=== PATIENT | female | born 1955 | race Two or more races ===

== ENCOUNTER 2016-10-06 23:36 | Emergency (ER) | payer OTHER ==
[~2016-10-06] VITALS: Ht 170.2 cm; Wt 65.8 kg
[~2016-10-06 23:36] MED LIST: AMLO5TAB2 PO; ANAS1TAB8 PO; ASPI81TA31 PO; ENAL20TA70 PO; METF-495 PO; SITA100T PO
[2016-10-07] MEDS ORDERED: LORAZEPAM 2 MG/1 ML VIAL IM ONE
[2016-10-07] MEDS ORDERED: LORAZEPAM 2 MG/1 ML VIAL ONE (00:02)
[2016-10-07 00:22] LABS: BASOPHILS # (AUTO) 0.1 K/uL (0.0-8.0); BASOPHILS % (AUTO) 0.8 % (0.0-2.0); EOSINOPHILS # (AUTO) 0.2 K/uL (0.0-0.7); HEMATOCRIT 39.2 % (37-47); LYMPHOCYTES # (AUTO) 2.7 K/UL (0.8-4.8); LYMPHOCYTES % (AUTO) 35.3 % (20.5-51.5); MEAN CORPUSCULAR HEMOGLOBIN 28.7 UUG (27.0-31.0); MEAN CORPUSCULAR HGB CONC 33 g/dL (32.0-37.0); MEAN CORPUSCULAR VOLUME 86.6 FL (81.0-99.0); MONOCYTES # (AUTO) 0.5 K/UL (0.1-1.30); MONOCYTES % (AUTO) 6.8 % (0.0-11.0); NEUTROPHILS # (AUTO) 4.2 K/UL (1.8-8.9); NEUTROPHILS % (AUTO) 55.1 % (38.5-71.5); PLATELET COUNT (AUTO) 316 K/UL (150-450); RED BLOOD CELL COUNT(AUTO) 4.52 MIL/UL (4.2-5.4); WHITE BLOOD COUNT (AUTO) 7.8 K/UL (4.0-11.2)
[2016-10-07 00:27] LABS: CREATININE 0.8 mg/dL (0.6-1.3); POTASSIUM 3.7 mmol/L (3.5-5.1)
[2016-10-07 00:33] LABS: BILIRUBIN,DIRECT 0.1 mg/dL (0.0-0.2); BILIRUBIN,TOTAL 0.3 mg/dL (0.2-1.0); TOTAL PROTEIN, SERUM 8.1 g/dL (6.4-8.2)
--- NOTE | 2016-10-07 01:43 | NUR ---
Patient discharged to home in stable conditon. Written and verbal after care instructions given. Patient verbalizes understanding of instructions.
--- NOTE | 2016-10-07 04:53 | NUR ---
The patient left prior to the chest x-ray results, I had discussed with them and if there were any acute findings I would let them know. Chest x-ray revealed that there was a possible nodule, CT was recommended. I left a message on an answering machine for them to call back
== END 2016-10-07 01:44 | disposition home or self-care (01) ==
LOC: ER 23:44
DX: F41.9 Anxiety disorder, unspecified (principal); F41.0 Panic disorder [episodic paroxysmal anxiety]; I10 Essential (primary) hypertension; Z85.3 Personal history of malignant neoplasm of breast; Z88.6 Allergy status to analgesic agent; Z79.82 Long term (current) use of aspirin
CPT/HCPCS: 36415; 70030-TC; 71010; 84443; 85025; 85730; 93005; A4663; J2060

== ENCOUNTER 2017-02-11 12:25 | Inpatient (IN) | payer OTHER ==
[~2017-02-11] VITALS: Ht 167.6 cm; Wt 64.0 kg
[2017-02-11] MEDS ORDERED: OYSCO-500 TABLET (12:43)
--- NOTE | 2017-02-11 12:54 | NUR ---
PT IS IN ROOM #1B. DR PRAJAPATI EVALUATED THE PT.
[2017-02-11] MEDS ORDERED: MORPHINE SULFATE 2 MG/1 ML DISP.SYRIN IV ONE (13:30)
[2017-02-11] MEDS ORDERED: ONDANSETRON 4 MG/2 ML VIAL IV ONE (13:30)
[2017-02-11] MEDS ORDERED: IV NORMAL SALINE 1000 ML BAG IV ONE (13:30)
[2017-02-11 13:55] LABS: BASOPHILS # (AUTO) 0.1 K/uL (0.0-8.0); BASOPHILS % (AUTO) 0.9 % (0.0-2.0); EOSINOPHILS # (AUTO) 0.1 K/uL (0.0-0.7); EOSINOPHILS % (AUTO) 1.7 % (0.0-7.0); HEMATOCRIT 35.9 % (31.2-41.9); HEMOGLOBIN 12.1 g/dL (10.9-14.3); LYMPHOCYTES # (AUTO) 1.8 K/uL (20.0-40.0); LYMPHOCYTES % (AUTO) 21.3 % (20.5-51.5); MEAN CORPUSCULAR HEMOGLOBIN 29.1 uug (24.7-32.8); MEAN CORPUSCULAR HGB CONC 34 g/dL (32.3-35.6); MEAN CORPUSCULAR VOLUME 86.3 fL (75.5-95.3); MONOCYTES # (AUTO) 0.5 K/uL (2.0-10.0); MONOCYTES % (AUTO) 6.1 % (0.0-11.0); PLATELET COUNT (AUTO) 305 K/uL (179-408); RED BLOOD CELL COUNT(AUTO) 4.16 MIL/uL (3.63-4.92); WHITE BLOOD COUNT (AUTO) 8.6 K/uL (3.8-11.8)
[2017-02-11 13:59] LABS: CREATININE 0.6 mg/dL (0.6-1.3); POTASSIUM 3.7 mmol/L (3.5-5.1)
[2017-02-11 14:05] LABS: BILIRUBIN,DIRECT 0.1 mg/dL (0.0-0.2); BILIRUBIN,TOTAL 0.2 mg/dL (0.2-1.0); TOTAL PROTEIN, SERUM 7.1 g/dL (6.4-8.2)
[2017-02-11] MEDS ORDERED: LORAZEPAM 2 MG/1 ML VIAL IV ONE ×2 (14:15→14:30)
[2017-02-11] MEDS ORDERED: LORAZEPAM 2 MG/1 ML VIAL ONE ×2 (14:22→14:40)
[2017-02-11 14:59] LABS: *BILIRUBIN,URIN NEGATIVE (NEGATIVE); *BLOOD, URINE Trace-lysed (NEGATIVE); *CLARITY,URINE CLEAR (CLEAR); *COLOR,URINE LIGHT YELLOW (YELLOW); *KETONES,URINE NEGATIVE (NEGATIVE); *PROTEIN,URINE NEGATIVE (NEGATIVE); *UROBILINOGEN,URINE 0.2 E.U./dl (NORMAL); LEUKOCYTE ESTERASE ,URINE NEGATIVE (NEGATIVE); NITRITE, URINE NEGATIVE (NEGATIVE); UGLUCOSE NEGATIVE (NEGATIVE)
[2017-02-11 15:18] LABS: RBC,URINE 0-3 /HPF (0-3)
[2017-02-11 15:19] LABS: BACTERIA,URINE NONE SEEN /HPF (NONE SEEN); SQUAMOUS EPITHELIAL CELL,UR FEW /HPF (NONE SEEN)
[2017-02-11 18:35] VITALS: BP 139/72
--- NOTE | 2017-02-11 18:45 | NUR ---
RECEIVED PATIENT FROM ED BY JACOBY 61 YEARS OLD FEMALE WITH DX OF LT RIB FRACTURE TO ROOM 218.PLACED INTO BED FIXED AND MADE COMFORTABLE.PATIENT IS ALERT AND ORIENTED X4 DENIES PAIN OR DISCOMFORTS AT THIS TIME.PATIENT ORIENTED TO ROOM BATHROOM AND THIS HOSPITAL PROTOCOL.MADE COMFORTABLE ADMISSION ENDORSED.
--- NOTE | 2017-02-11 18:45 | NUR ---
PT WAS TRANSFERED TO ROOM #218. REPORT WAS GIVEN TO M/S RN.
--- NOTE | 2017-02-11 19:30 | NUR ---
Pt in room alert awake and oriented x 4. No acute distress but states discomfort to right side left rib area. Refuses pain medication at this time. Awaiting admitting orders from Dr. Ursula Dominguez. Bed alarm on, side rails up, and call light placed within reach. Continue to monitor.
[2017-02-11 20:00] VITALS: BP 123/60
[2017-02-11] MEDS ORDERED: ONDANSETRON 4 MG/2 ML VIAL IV PRN (20:15)
[2017-02-11] MEDS ORDERED: Z GUARD REMEDY PASTE 57 GM TUBE TOP PRN (20:15)
[2017-02-11] MEDS ORDERED: ZOLPIDEM 5 MG TABLET PO PRN (20:15)
[2017-02-11] MEDS ORDERED: HYDROCODONE/APAP 10-325 MG TABLET PO PRN (20:15)
[2017-02-11] MEDS ORDERED: MAGNESIUM HYDROXIDE 30 ML LIQUID UDC PO PRN (20:15)
[2017-02-11] MEDS ORDERED: MORPHINE SULFATE 2 MG/1 ML DISP.SYRIN IV PRN (20:15)
[2017-02-11] MEDS ORDERED: ACETAMINOPHEN 325 MG TABLET PO PRN (20:15)
[2017-02-11] MEDS ORDERED: ANASTROZOLE 1 MG TABLET PO SCH (21:00)
--- NOTE | 2017-02-11 21:00 | NUR ---
Pt requested ambien and states she takes Januvia 100mg po 1 hr before breakfast daily. MD made aware. Continue to monitor.
[2017-02-11] MEDS ORDERED: ZOLPIDEM 5 MG TABLET ONE (22:08)
[2017-02-12] MEDS ORDERED: SITAGLIPTIN PHOSPHATE 50 MG TABLET PO SCH ×2 (07:00→09:00)
[2017-02-12] MEDS ORDERED: AMLODIPINE 5 MG TABLET PO SCH (09:00)
[2017-02-12] MEDS ORDERED: ENALAPRIL 10 MG TABLET PO SCH (09:00)
[2017-02-12] MEDS ORDERED: LINAGLIPTIN 5 MG TABLET PO SCH (09:00)
[2017-02-12] MEDS ORDERED: ASPIRIN 81 MG TAB.CHEW PO SCH (09:00)
[2017-02-12 09:43] LABS: BILIRUBIN,TOTAL 0.2 mg/dL (0.2-1.0); CREATININE 0.7 mg/dL (0.6-1.3); PHOSPHOROUS 4.9 mg/dL (2.5-4.9); POTASSIUM 4.1 mmol/L (3.5-5.1)
[2017-02-12 09:44] LABS: THYROID STIMULATING HORMONE 0.532 mIU/mL (0.358-3.740)
--- NOTE | 2017-02-12 11:16 | NUR ---
Pt SBAR report received at bedside, earlier this morning when system was down. Pt awake, alert, and oriented x4. Board updated. Pt assessed and requesting diabetic medication Januvia regularly taken at home. Hospital protocol discussed that Tradjenta is the automatic substitute. Pt compliant with all other routine morning medications administered. Enalapril held r/t BP of 106/66, pulse 83. Tylenol administered as ordered for mild pain 4-5/10 located to left ribs. Extra pillow supplied and Pt teaching to use for splinting done. All safety and comfort measures met at this time. Personal items and call light within reach. Will continue to monitor.
[2017-02-12 11:20] VITALS: BP 121/67
[2017-02-12 11:44] LABS: BASOPHILS # (AUTO) 0.1 K/uL (0.0-8.0); BASOPHILS % (AUTO) 0.8 % (0.0-2.0); EOSINOPHILS # (AUTO) 0.2 K/uL (0.0-0.7); EOSINOPHILS % (AUTO) 2.6 % (0.0-7.0); HEMATOCRIT 35.7 % (37-47); LYMPHOCYTES # (AUTO) 1.7 K/UL (0.8-4.8); LYMPHOCYTES % (AUTO) 24.4 % (20.5-51.5); MEAN CORPUSCULAR HEMOGLOBIN 29.3 UUG (27.0-31.0); MEAN CORPUSCULAR HGB CONC 34 g/dL (32.0-37.0); MEAN CORPUSCULAR VOLUME 87.2 FL (81.0-99.0); MONOCYTES # (AUTO) 0.5 K/UL (0.1-1.30); MONOCYTES % (AUTO) 7.7 % (0.0-11.0); NEUTROPHILS # (AUTO) 4.5 K/UL (1.8-8.9); NEUTROPHILS % (AUTO) 64.5 % (38.5-71.5); PLATELET COUNT (AUTO) 305 K/UL (150-450)
[2017-02-12] MEDS ORDERED: LIDOCAINE 5% PATCH TD SCH (13:15)
--- NOTE | 2017-02-12 13:59 | NUR ---
Pt seen by Dr. Yudith BUTT. Plan of care discussed, including D/C plans for today. Incentive spirometer placed at bedside and Pt teaching regarding use provided. Will continue to monitor and follow up.
[2017-02-12] MEDS ORDERED: HYDR-548 PO (14:31)
[2017-02-12 15:35] VITALS: BP 118/67
[2017-02-12] MEDS ORDERED: METFORMIN XR 500 MG TAB.SR.24H PO SCH (18:00)
--- NOTE | 2017-02-12 18:23 | NUR ---
Pt discharge orders, plans, and instructions received and discussed with Pt. Pt verbalizes understanding of d/c instructions and to f/u with PCP. V/S stable at 116/60, 80, 96%, and a 98.7 temp. Documents signed and witnessed. Pt IV removed and intact. Pt belongings accounted for including home medications and ID band removed. Pt escorted off the unit via wheelchair to private care with son waiting to transfer home.
[2017-02-12] MEDS ORDERED: ENOXAPARIN SODIUM 40 MG/0.4 ML DISP.SYRIN SQ SCH (21:00)
--- NOTE | 2017-02-15 09:21 | NUR ---
Spoke to [facility] Anastasia MAYA [ ; ], and informed her that the patient was discharged on 02/12/17. Faxed the clinical reviews and discharge summary.
== END 2017-02-12 18:20 | disposition home or self-care (01) | DRG 135 ==
LOC: ER 12:32 → MED 18:06
PROVIDERS: ADMIT Nurse Practitioner Acute Care; ATTEND Nurse Practitioner Acute Care
DX: S22.42XA Multiple fractures of ribs, left side, initial encounter for closed fracture (principal); I10 Essential (primary) hypertension; E11.9 Type 2 diabetes mellitus without complications; F41.9 Anxiety disorder, unspecified; W17.89XA Other fall from one level to another, initial encounter; Y92.89 Other specified places as the place of occurrence of the external cause; I97.2 Postmastectomy lymphedema syndrome; Z85.3 Personal history of malignant neoplasm of breast; Z79.84 Long term (current) use of oral hypoglycemic drugs; M25.552 Pain in left hip; M51.36 Other intervertebral disc degeneration, lumbar region
CPT/HCPCS: 36415; 70030-TC; 70450; 71010; 71101; 72072; 72100; 72125; 73502; 83735; 84100; 84443; 85025; 87086; A4663; J2060; J7030

== ENCOUNTER 2019-06-07 11:47 | Emergency (ER) | payer MEDICAID, OTHER ==
[~2019-06-07 11:47] MED LIST changes: -AMLO5TAB2 PO; +AMLO5TAB9 PO; +EZET10TA15 PO; +HYDR-4354 PO; +OYSCO-500 TABLET
--- NOTE | 2019-06-07 11:53 | NUR ---
PT DECIDED TO LEAVE AND COME BACK IN THE AFTERNOON. PT HAS APPT FOR CT TODAY AND DOES NOT WANT TO MISS IT. Addendum: 06/07/19 at 1154 by ELSI LEFT WITHOUT BEING TRIAGED
== END 2019-06-07 11:53 | disposition left against medical advice (07) ==
LOC: ER 11:47
DX: Z53.21 Procedure and treatment not carried out due to patient leaving prior to being seen by health care provider (principal)

== ENCOUNTER 2019-07-04 16:05 | Emergency (ER) | payer MEDICAID ==
[~2019-07-04] VITALS: Ht 165.1 cm; Wt 67.1 kg
--- NOTE | 2019-07-04 16:20 | NUR ---
PT IS IN ROOM #1A. DR JENKINS EVALUATED THE PT.
[2019-07-04] MEDS ORDERED: MORPHINE SULFATE 4 MG/1 ML DISP.SYRIN ONE (16:26)
[2019-07-04] MEDS ORDERED: TDAP DIPH,PERTUSS,TET VAC/PF 0.5 ML DISP.SYRIN IM ONE ×2 (16:26→16:30)
[2019-07-04] MEDS ORDERED: ONDANSETRON ODT 4 MG TAB.RAPDIS ONE (16:26)
[2019-07-04] MEDS ORDERED: ONDANSETRON ODT 4 MG TAB.RAPDIS SL ONE (16:30)
[2019-07-04] MEDS ORDERED: MORPHINE SULFATE 4 MG/1 ML DISP.SYRIN IM ONE (16:30)
--- NOTE | 2019-07-04 17:54 | NUR ---
PT WAS D/C'd TO HOME. D/C INSTRUCTIONS GIVEN TO THE PT BY DR JENKINS.
[2019-07-04 17:55] VITALS: BP 141/79
== END 2019-07-04 17:58 | disposition home or self-care (01) ==
LOC: ER 16:11
DX: S82.832A Other fracture of upper and lower end of left fibula, initial encounter for closed fracture (principal); S00.83XA Contusion of other part of head, initial encounter; S80.02XA Contusion of left knee, initial encounter; S70.02XA Contusion of left hip, initial encounter; I10 Essential (primary) hypertension; E11.9 Type 2 diabetes mellitus without complications; Z88.5 Allergy status to narcotic agent; Z79.82 Long term (current) use of aspirin; Z79.899 Other long term (current) drug therapy; W01.198A Fall on same level from slipping, tripping and stumbling with subsequent striking against other object, initial encounter; Y93.89 Activity, other specified; Y92.89 Other specified places as the place of occurrence of the external cause; Y99.8 Other external cause status
CPT/HCPCS: 70450; 70486; 73502; 73610; 90715; A4663; J2270; Q0162

== ENCOUNTER 2021-04-10 09:23 | Inpatient (IN) | payer MEDICARE, OTHER ==
[~2021-04-10] VITALS: Ht 160 cm; Wt 59.2 kg
[~2021-04-10 09:23] MED LIST changes: +AMLO-212 PO; -AMLO5TAB9 PO
[2021-04-10] MEDS ORDERED: LORAZEPAM 2 MG/1 ML VIAL IV ONE ×3 (09:45→17:45)
[2021-04-10 09:58] LABS: HEMATOCRIT 30.2 % (31.2-41.9); MEAN CORPUSCULAR HEMOGLOBIN 35.5 uug (24.7-32.8); MEAN CORPUSCULAR VOLUME 103.1 fL (75.5-95.3); PLATELET COUNT (AUTO) 403 K/uL (179-408)
[2021-04-10] MEDS ORDERED: LORAZEPAM 2 MG/1 ML VIAL ONE ×3 (10:05→17:45)
[2021-04-10 10:07] LABS: CREATININE 0.9 mg/dL (0.6-1.3)
--- NOTE | 2021-04-10 10:19 | NUR ---
Pt laying comfortably, fowlers in gurney with spouse at bedside. States feeling improvement in S/S post medication admistration. No adverse event reported.
[2021-04-10 10:20] LABS: BILIRUBIN,DIRECT 0.1 mg/dL (0.0-0.2); BILIRUBIN,TOTAL 0.4 mg/dL (0.2-1.0); TOTAL PROTEIN, SERUM 7.8 g/dL (6.4-8.2)
[2021-04-10] MEDS ORDERED: FULV250D2 IM (10:30)
[2021-04-10] MEDS ORDERED: ABEM150T PO (10:30)
[2021-04-10] MEDS ORDERED: IV NORMAL SALINE 250 ML IV ONE (11:55)
[2021-04-10] MEDS ORDERED: SWABABLE VALVE TRANSFER SET EA MC ONE (11:55)
[2021-04-10] MEDS ORDERED: IOHEXOL 350 100 ML INFUS..BTL ONE (11:55)
--- NOTE | 2021-04-10 12:01 | NUR ---
Pt taken for CT scan via gurney, in stable condition, by audiovisual lead technician. SpO2 98% RA at time of transport.
--- NOTE | 2021-04-10 12:28 | NUR ---
Pt return from scan, in stable condition. VSS. SpO2 @ 97%. Pt sleeping.
[2021-04-10] MEDS ORDERED: levoFLOXacin 750 MG TABLET PO ONE (13:30)
[2021-04-10] MEDS ORDERED: levoFLOXacin 750 MG TABLET ONE (13:49)
[2021-04-10] MEDS ORDERED: CEFTRIAXONE 1 G in IV DEXTROSE 5% 50 ML IV ONE (14:15)
--- NOTE | 2021-04-10 16:51 | NUR ---
KACEY. DILLON at this time. Pt aware, awaiting bed assignment for admit.
[2021-04-10] MEDS ORDERED: ACETAMINOPHEN 325 MG TABLET PO PRN (17:00)
[2021-04-10] MEDS ORDERED: HYDROCODONE/APAP 5-325MG TABLET PO PRN (17:00)
[2021-04-10] MEDS ORDERED: ONDANSETRON 4 MG/2 ML VIAL IV PRN (17:00)
[2021-04-10] MEDS ORDERED: TEMAZEPAM 15 MG CAPSULE PO PRN (17:00)
--- NOTE | 2021-04-10 17:45 | NUR ---
Pt states return of pain, stating previous medication helped. Medication administered per provider order.
--- NOTE | 2021-04-10 18:19 | NUR ---
Report given to YAMIL Mcdonough. Pt will be transported to 3rd floor via wheelchair. Pt is in stable condition at this time.
--- NOTE | 2021-04-10 18:40 | NUR ---
Pt transported in stable condition. Hand-off at bedside with YAMIL Mcdonough.
--- NOTE | 2021-04-10 19:30 | NUR ---
Admitted a 65 yrs old female with Dx of PNA. Patient AAOx4. In no acute distress. Denies any pain or SOB at this time. O2 sat at 96% on RA. VS WNL. NSR on tele with HR of 84/min. IV site on right AC intact and patent.Dressing on IV site reinforced and secured. Routine admission care done. Plan of care initiated. Safety measure initiated and call light within reached.
[2021-04-10] MEDS ORDERED: LORA-258 PO (19:51)
[2021-04-10 20:00] VITALS: BP 123/64
[2021-04-10] MEDS: LORAZEPAM 0.5 MG TABLET PO PRN (21:10)
[2021-04-11] VITALS: BP 111/66
[2021-04-11] MEDS: VERZENIO 150 MG PO SCH ×2 (00:05→12:45)
[2021-04-11 04:05] VITALS: BP 128/76
--- NOTE | 2021-04-11 05:55 | NUR ---
patient slept well last night. In no acute distress. No complain of pain or SOB. NSR on tele with HR of 88/min. IV site on right AC intact and patent. Needs attended to and met. Safety measure maintained and call light within reached.
[2021-04-11] MEDS: PANTOPRAZOLE SODIUM 40 MG TABLET.DR PO SCH (06:13)
[2021-04-11 06:43] LABS: HEMATOCRIT 28.1 % (31.2-41.9); MEAN CORPUSCULAR HEMOGLOBIN 35.4 uug (24.7-32.8); MEAN CORPUSCULAR VOLUME 102.9 fL (75.5-95.3); PLATELET COUNT (AUTO) 349 K/uL (179-408)
[2021-04-11 07:50] LABS: BILIRUBIN,TOTAL 0.2 mg/dL (0.2-1.0); CREATININE 0.8 mg/dL (0.6-1.3); MAGNESIUM 2.2 mg/dL (1.8-2.4); PHOSPHOROUS 4.5 mg/dL (2.5-4.9); POTASSIUM 3.9 mmol/L (3.5-5.1)
[2021-04-11] MEDS: ALBUTEROL SULFATE 2.5 MG/3 ML NEBU NEB PRN (08:29)
[2021-04-11 08:30] VITALS: BP 146/67
[2021-04-11] MEDS ORDERED: ASPIRIN 81 MG TAB.CHEW PO SCH (09:00)
[2021-04-11] MEDS: AMLODIPINE 5 MG TABLET PO SCH (09:13)
[2021-04-11] MEDS: LORAZEPAM 0.5 MG TABLET PO PRN ×2 (09:13→17:35)
[2021-04-11] MEDS: EZETIMIBE 10 MG TABLET PO SCH (09:13)
[2021-04-11 09:40] LABS: THYROID STIMULATING HORMONE 0.371 mIU/mL (0.358-3.740)
--- NOTE | 2021-04-11 11:55 | NUR ---
Pt is a/o x 4, complains of chest pain and MD MEGAN notified. Pt received breathing tx (prn Q6). Spoke to family via phone regarding concerns of tx. Comfort measures provided, call light within reach. Will continue to monitor.
[2021-04-11] MEDS: levoFLOXacin 500 MG/D5W 500 MG in PREMIXED 1 EACH IV SCH (12:45)
[2021-04-11] MEDS ORDERED: SITA100T PO (14:08)
[2021-04-11] MEDS ORDERED: CYAN-10 IM (14:11)
[2021-04-11] MEDS ORDERED: LIDOCAINE 5% PATCH TD (14:14)
[2021-04-11] MEDS ORDERED: METH-806 PO (14:15)
[2021-04-11] MEDS ORDERED: ANAS1TAB50 PO (14:15)
[2021-04-11] MEDS ORDERED: PANT40TA49 PO (14:16)
[2021-04-11] MEDS ORDERED: METF-440 PO (14:16)
[2021-04-11] MEDS ORDERED: ERGO500040 PO (14:17)
[2021-04-11] MEDS ORDERED: ONDA-104 PO (14:18)
[2021-04-11] MEDS ORDERED: MIRT-93 PO (14:18)
[2021-04-11] MEDS ORDERED: FURO20TA4 PO (14:18)
[2021-04-11 15:16] VITALS: BP 134/74
--- NOTE | 2021-04-11 19:30 | NUR ---
AAOx4. In no acute distress. Denies any pain or SOB. O2 at 1LPM via NC. O2 sat at 99%. VS WNL. IV site on right AC intact and patent. Needs assessed and attended to. Safety measure initiated and call light within reached.
[2021-04-11 20:30] VITALS: BP 112/67
[2021-04-11 21:18] LABS: *OCCULT BLOOD STOOL NEGATIVE (NEGATIVE)
[2021-04-12] MEDS: VERZENIO 150 MG PO SCH ×3 (00:20→12:32)
[2021-04-12 05:25] VITALS: BP 130/73
--- NOTE | 2021-04-12 05:32 | NUR ---
Patient slept well last night. In no apparent distress. No complain of pain or SOB. O2 sat at 96% on RA. IV site on right AC intact and patent. NPO status. Needs attended to and met. Safety measure maintained and call light within reached.
[2021-04-12] MEDS: PANTOPRAZOLE SODIUM 40 MG TABLET.DR PO SCH (06:08)
--- NOTE | 2021-04-12 07:30 | NUR ---
received patient laying in bed in no apparent distress. patient is alert and oriented x4 and able to make needs known. patient currently on r/a spo2 96% , respirations even and non-labored, 0 sob at this time. patient with iv to right ac heplock in place and patent. reminded patient to use call light for assistance. v/s wnl at this time, side rails up x2, call light within reach.
[2021-04-12] MEDS: AMLODIPINE 5 MG TABLET PO SCH (08:10)
[2021-04-12] MEDS: EZETIMIBE 10 MG TABLET PO SCH (08:10)
--- NOTE | 2021-04-12 08:11 | NUR ---
morning Meds held, per patient request due to CT in am with contrast.
[2021-04-12] MEDS ORDERED: IV NORMAL SALINE 250 ML IV ONE (08:37)
[2021-04-12] MEDS ORDERED: SWABABLE VALVE TRANSFER SET EA MC ONE (08:37)
[2021-04-12] MEDS ORDERED: IOHEXOL 300MG/ML 100 ML INFUS..BTL ONE (08:37)
[2021-04-12 09:06] LABS: *IMMUNOGLOBULIN G, SERUM 811 mg/dL (586-1602); IMMUNOGLOBULIN A, SERUM 183 mg/dL (87-352); IMMUNOGLOBULIN M, SERUM 90 mg/dL (26-217)
[2021-04-12] MEDS ORDERED: MAG HYDROX/AL HYDROX/SIMETH 30 ML LIQUID UDC PO PRN (09:45)
[2021-04-12 12:00] VITALS: BP 126/70
[2021-04-12] MEDS: LORAZEPAM 0.5 MG TABLET PO PRN (12:32)
[2021-04-12] MEDS: levoFLOXacin 500 MG/D5W 500 MG in PREMIXED 1 EACH IV SCH (12:33)
[2021-04-12] MEDS ORDERED: levoFLOXacin 500 MG/D5W 100 ML ONE (12:39)
[2021-04-12 12:47] LABS: HEMATOCRIT 33.3 % (31.2-41.9); MEAN CORPUSCULAR HEMOGLOBIN 34.9 uug (24.7-32.8); MEAN CORPUSCULAR VOLUME 103.6 fL (75.5-95.3); PLATELET COUNT (AUTO) 418 K/uL (179-408)
--- NOTE | 2021-04-12 12:48 | NUR ---
levaquin IV administered
[2021-04-12 12:57] LABS: CREATININE 0.9 mg/dL (0.6-1.3); MAGNESIUM 2.3 mg/dL (1.8-2.4); PHOSPHOROUS 4.2 mg/dL (2.5-4.9)
[2021-04-12] MEDS ORDERED: LIDO30AD10 TD (14:22)
[2021-04-12 16:10] VITALS: BP 107/58
[2021-04-12] MEDS ORDERED: METHOCARBAMOL 500 MG TABLET PO PRN (16:30)
[2021-04-12] MEDS ORDERED: METFORMIN HCL 500 MG TABLET PO SCH (17:00)
--- NOTE | 2021-04-12 19:30 | NUR ---
Received patient lying in bed. AAOx4. In no acute distress. Denies any pain or SOB. IV site on right AC intact and patent. Needs assessed and attended to. Safety measure initiated and call light within reached.
[2021-04-12 20:01] VITALS: BP 107/65
[2021-04-12] MEDS: MIRTAZAPINE 15 MG TABLET PO SCH (20:22)
[2021-04-12] MEDS: LIDOCAINE 5% PATCH TD SCH (20:22)
[2021-04-13] MEDS: VERZENIO 150 MG PO SCH ×2 (00:06→13:00)
[2021-04-13 04:15] VITALS: BP 129/75
[2021-04-13] MEDS: PANTOPRAZOLE SODIUM 40 MG TABLET.DR PO SCH (06:33)
[2021-04-13] MEDS ORDERED: PANTOPRAZOLE SODIUM 40 MG TABLET.DR PO SCH (07:00)
--- NOTE | 2021-04-13 07:00 | NUR ---
Patient slept well last night. In no acute distress. No complain of pain or SOB. O2 at 1LPM via NC in place. O2 at 98%. IV site on right AC intact and patent. Needs attended to and met. Safety measure maintained and call light within reached.
[2021-04-13] MEDS: EZETIMIBE 10 MG TABLET PO SCH (08:53)
[2021-04-13] MEDS: AMLODIPINE 5 MG TABLET PO SCH (08:53)
[2021-04-13] MEDS: FUROSEMIDE 20 MG TABLET PO SCH (09:00)
[2021-04-13] MEDS: ANASTROZOLE 1 MG TABLET PO SCH (09:00)
[2021-04-13] MEDS: LINAGLIPTIN 5 MG TABLET PO SCH (09:00)
--- NOTE | 2021-04-13 09:00 | NUR ---
PATIENT SEEN AND EXAMINED BY DR TAO WITH NEW ORDERS AND NOTED SHE IS USING O2 ON AND OFF DENIES SHORTNESS OF BREATH BUT STATED THAT THE O2 MAKES HER FEEL BETTER BUT DENIES PAIN AT THIS TIME.
[2021-04-13 11:50] VITALS: BP 115/73
[2021-04-13] MEDS: levoFLOXacin 500 MG/D5W 500 MG in PREMIXED 1 EACH IV SCH (13:00)
--- NOTE | 2021-04-13 14:00 | NUR ---
PATIENT REFUSED LEVAQUIN ORDERED STATED THAT THE DOCTOR TOLD HER THAT SHE HAS VIRUS AND THAT SHE DOES NOT WANT ANY ANTIBIOTICS PATIENTS RIGHT TO REFUSE RESPECTED WILL NOTIFY DR SANCHES.
[2021-04-13 15:45] VITALS: BP 99/65
--- NOTE | 2021-04-13 16:00 | NUR ---
PATIENT EXPRESSED WISHES TO BE TRANSFERED TO [facility] STATED THAT HER PRIMARY AND HER ONCOLOGIST ARE ALL THERE BARKEEPER NOTIFIED.
--- NOTE | 2021-04-13 18:19 | NUR ---
FAMILY AT THE BEDSIDE VISITING INCLUDING PATIENTS EX NACHO AWARE THAT THE SENIOR TABLEAU DEVELOPER IS MAKING CONTACT WITH [facility] RE ACUTE TO ACUTE TRANSFER AND HE EXPRESSED UNDERSTANDING.
[2021-04-13 20:13] VITALS: BP 117/71
[2021-04-13] MEDS: MIRTAZAPINE 15 MG TABLET PO SCH (20:33)
[2021-04-13] MEDS: LIDOCAINE 5% PATCH TD SCH (20:33)
[2021-04-14] MEDS: VERZENIO 150 MG PO SCH ×2 (00:02→12:37)
[2021-04-14 04:38] VITALS: BP 127/72
[2021-04-14] MEDS: PANTOPRAZOLE SODIUM 40 MG TABLET.DR PO SCH (06:04)
[2021-04-14 06:16] LABS: A/G RATIO 0.9 (0.7-1.7); ALBUMIN 3.1 g/dL (2.9-4.4); ALPHA-1-GLOBULIN 0.3 g/dL (0.0-0.4); ALPHA-2-GLOBULIN 1.1 g/dL (0.4-1.0); BETA GLOBULIN 1.2 g/dL (0.7-1.3); GAMMA GLOBULIN 0.8 g/dL (0.4-1.8); GLOBULIN, TOTAL 3.3 g/dL (2.2-3.9); M-SPIKE Not Observed g/dL (Not Observed)
--- NOTE | 2021-04-14 06:45 | NUR ---
Justin from the lab reported (+) blood culture done on 04/10/2021, gram (+) cocci and clusters. Dr Zurita made aware.
--- NOTE | 2021-04-14 06:54 | NUR ---
Patient remained stable, no distress identified. Patient requested to remove her IV site. Lab called to report (+) blood culture done on 04/10/2021, gram (+) cocci and clusters. Dr Zurita made aware, awaiting response. All due meds given, all needs attended. Safety precaution maintained. Kept call light within reach. Will endorse to the next shift for continuity of care.
[2021-04-14] MEDS: LINAGLIPTIN 5 MG TABLET PO SCH (08:54)
[2021-04-14] MEDS: EZETIMIBE 10 MG TABLET PO SCH (08:54)
[2021-04-14] MEDS: AMLODIPINE 5 MG TABLET PO SCH (08:55)
[2021-04-14] MEDS: ANASTROZOLE 1 MG TABLET PO SCH (08:56)
[2021-04-14] MEDS: FUROSEMIDE 20 MG TABLET PO SCH (08:57)
--- NOTE | 2021-04-14 09:13 | NUR ---
DR. SANCHES NOTIFIED OF BLOOD CULTURE FROM 04/10 OF GRAM + COCCI IN [facility]
[2021-04-14 11:50] VITALS: BP 120/65
[2021-04-14] MEDS: ALBUTEROL SULFATE 2.5 MG/3 ML NEBU NEB PRN (11:57)
[2021-04-14] MEDS ORDERED: levoFLOXacin 500 MG TABLET PO SCH (13:00)
--- NOTE | 2021-04-14 15:12 | NUR ---
family at bedside requesting to speak to case fitter regarding lateral transfer to [facility], giselle spoke with family at this time.
[2021-04-14 15:53] VITALS: BP 117/69
--- NOTE | 2021-04-14 19:30 | NUR ---
Received patient sitting up in bed with family at bedside. Alert x4, able to make needs known. Denies any pain or discomfort. On 2L 02 via NC, no SOB at this time. Needs assessed and met. Safety measures initiated. Call light within reach.
[2021-04-14] MEDS: LIDOCAINE 5% PATCH TD SCH (20:22)
[2021-04-14] MEDS: MIRTAZAPINE 15 MG TABLET PO SCH (20:22)
[2021-04-14 20:33] VITALS: BP 112/61
[2021-04-15] MEDS: VERZENIO 150 MG PO SCH ×2 (00:56→14:07)
[2021-04-15 04:00] VITALS: BP 101/62
[2021-04-15] MEDS: PANTOPRAZOLE SODIUM 40 MG TABLET.DR PO SCH (06:08)
[2021-04-15 06:42] LABS: HEMATOCRIT 32.7 % (31.2-41.9); MEAN CORPUSCULAR HEMOGLOBIN 35.3 uug (24.7-32.8); MEAN CORPUSCULAR VOLUME 103.9 fL (75.5-95.3); PLATELET COUNT (AUTO) 361 K/uL (179-408)
[2021-04-15 06:55] LABS: MAGNESIUM 2.4 mg/dL (1.8-2.4); PHOSPHOROUS 4.4 mg/dL (2.5-4.9); POTASSIUM 4.1 mmol/L (3.5-5.1)
--- NOTE | 2021-04-15 06:55 | NUR ---
Pt slept throughout the night, easily arousable for care. She is alert and oriented x4, able to make needs known. On O2 at 1 LPM via NC saturating at 99%. No complaints of pain and discomfort made. Due meds given and tolerated well. BRP with assistance. All needs attended. Call light placed within reach. Frequent visual checks done. Will endorse to next shift for assistance.
[2021-04-15] MEDS: METFORMIN HCL 500 MG TABLET PO SCH ×2 (09:00→17:00)
[2021-04-15] MEDS: LINAGLIPTIN 5 MG TABLET PO SCH (09:00)
[2021-04-15] MEDS: ANASTROZOLE 1 MG TABLET PO SCH (09:00)
[2021-04-15] MEDS: AMLODIPINE 5 MG TABLET PO SCH (09:52)
[2021-04-15] MEDS: EZETIMIBE 10 MG TABLET PO SCH (09:52)
[2021-04-15] MEDS: FUROSEMIDE 20 MG TABLET PO SCH (09:52)
[2021-04-15 11:30] VITALS: BP 121/75
[2021-04-15 16:00] VITALS: BP 105/63
--- NOTE | 2021-04-15 18:46 | NUR ---
Received orders from doctor to discharge this patient. Patient is going home with daughter Cathryn. Patient denies pain or any discomfort. All belongings returned to the patient including medications from home. Patient left the unit at 18:30.
[2021-04-16] MEDS ORDERED: VERZENIO 150 MG PO SCH (01:00)
== END 2021-04-15 18:30 | disposition home or self-care (01) | DRG 145 ==
LOC: ER 09:23 → TELE3 18:25 → MEDSURG3 04-11 08:05
PROVIDERS: ADMIT Internal Medicine; ATTEND Hospitalist
DX: J20.9 Acute bronchitis, unspecified (principal); J90 Pleural effusion, not elsewhere classified; C79.9 Secondary malignant neoplasm of unspecified site; C50.912 Malignant neoplasm of unspecified site of left female breast; D53.9 Nutritional anemia, unspecified; E11.9 Type 2 diabetes mellitus without complications; E78.5 Hyperlipidemia, unspecified; F32.A Depression, unspecified; N64.89 Other specified disorders of breast; F41.9 Anxiety disorder, unspecified; Z88.5 Allergy status to narcotic agent; Z87.01 Personal history of pneumonia (recurrent); Z20.822 Contact with and (suspected) exposure to COVID-19; Z90.12 Acquired absence of left breast and nipple; Z83.3 Family history of diabetes mellitus; J98.11 Atelectasis; Z79.84 Long term (current) use of oral hypoglycemic drugs; R59.0 Localized enlarged lymph nodes; I10 Essential (primary) hypertension
CPT/HCPCS: 36415; 70030-TC; 71045; 71275; 82378; 82784; 83550; 83735; 84100; 84155; 84165; 84443; 85025; 85730; 86140; 86334; 86480; 87040; 93005; 93307; 94640; 97161; A4663; G0378; J0696; J1956; J2060; J7040; J7050; J7060; Q9967